=== PATIENT | female | born 1980 | race Caucasian/White ===

== ENCOUNTER 2024-10-12 20:32 | Emergency (ER) | payer SELFPAY ==
[2024-10-12 20:46] VITALS: BP 136/90
[2024-10-12 21:12] LABS: % Basophils 0.2 % (0-2); % Eosinophils 1.3 % (0-6); % Immature Granulocytes 0.3 % (0-0.5); % Lymphocytes 15.3 % (20.5-51.1); % Monocytes 7.7 % (1.7-9.3); % Neutrophils 75.2 % (42.2-75.2); Absolute Eosinophils 0.2 10^3/uL (0-0.7); Absolute Lymphocytes 1.9 10^3/uL (1.2-3.4); Absolute Neutrophils 9.6 10^3/uL (1.4-6.5); Hematocrit 44.1 % (37.0-47.0); Hemoglobin 14.3 g/dL (12.0-16.0); Mean Corp Hgb Conc. 32.4 g/dL (33.0-37.0); Mean Corpuscular Volume 86.3 fL (81.0-99.0); Mean Platelet Volume 9.1 fL (7.4-10.4); Nucleated Red Blood Cells % 0 %; Platelet Count 302 10^3/uL (130-400); Red Blood Cell Count 5.11 10^6/uL (4.20-5.40); Red Cell Dist. Width 12.6 % (11.5-14.5); White Blood Cell Count 12.7 10^3/uL (4.8-10.8)
[2024-10-12 21:26] LABS: ALT (SGPT) 20 U/L (0-35); AST (SGOT) 20 U/L (14-36); Albumin 4.7 g/dl (3.5-5.0); Alkaline Phosphatase 107 U/L (38-126); Blood Urea Nitrogen 10 mg/dl (7-17); Calcium 9.2 mg/dl (8.4-10.2); Carbon Dioxide 24 mmol/L (22-30); Chloride 103 mmol/L (98-107); Glucose 115 mg/dl (70-99); Sodium 136 mmol/L (135-145); Total Bilirubin 0.5 mg/dl (0.2-1.3); Total Protein 7.1 g/dl (6.3-8.2); eGFR > 60.00
[2024-10-12 21:36] LABS: Urine Albumin 4+ (Neg - Trace); Urine Bilirubin Negative (Negative); Urine Character Bloody (Clear); Urine Color Red; Urine Glucose Negative (Negative); Urine Ketone Negative (Negative); Urine Leukocyte Negative (Negative); Urine Nitrite Negative (Negative); Urine Occult Blood 4+ (Negative); Urine Specific Gravity 1.015 (<1.030); Urine Urobilinogen Negative (Neg - 1+)
[2024-10-12 21:52] LABS: Urine Red Blood Cell >100 /HPF (0-2)
[2024-10-12 23:21] VITALS: BP 121/88
[2024-10-12 23:22] VITALS: BMI 25.8
--- NOTE | 2024-10-13 00:11 | ED.GENMED ---
History of Present Illness
General
Chief Complaint: Vaginal Bleeding
Source: patient
Exam Limitations: none
Time Seen by Provider: 10/12/24 23:41
Nursing documentation reviewed up to this point in time: agreed with except (Patient denies vaginal bleeding she complains of burning with urination and blood in urine)
History of Present Illness
History of Present Illness:
Patient is a 44 old female who presents to the ER complaining of burning with urination. She reports starting at 4 PM she had to urinate every 10 minutes and noticed blood in her urine. She denies any vaginal bleeding. She denies any fever chills
nausea vomiting. Denies any back pain. She does have a history of irregular periods
Review of Systems
Review of Systems
Allergies reviewed?: Yes
All Other Systems: ROS reviewed and negative except as documented in HPI and ROS
Constitutional: Reports no symptoms; Denies fever, fatigue or chills
Respiratory: Reports no symptoms
Cardiac: Reports no symptoms
ABD/GI: Reports other (Lower abdominal discomfort with urination)
: Reports dysuria, frequency, urgency and other (Blood in urine); Denies flank pain or discharge
Musculoskeletal: Reports no symptoms; Denies back pain
Skin: Reports no symptoms
Neurological: Reports no symptoms
Psychiatric: Reports no symptoms
Phy Exam
General Physical Exam
General Presentation: no apparent distress
General age: appears stated age
General Skin: warm and dry
General Habitus: normal
General Mental: alert
General Hydration: appears well hydrated
Gastrointestinal Exam
Gastrointestinal Exam: normal bowel sounds, non tender and soft
Neurological Exam
Neurological Exam: alert
Musculoskeletal Exam
Musculoskeletal Exam: full ROM
Skin Exam
Skin Exam: normal color and warm/dry
Psychiatric Exam
Psychiatric Exam: normal mood/affect
Course
Orders/Labs/Results
Orders:
Orders
10/12/24 21:00
Beta HCG Quantitative Urgent
Comment: ADD ON
Complete Blood Count/With Diff Urgent
Comprehensive Metabolic Panel Urgent
HCG, Serum Qualitative Screen Urgent
Comment: ADD ON
Urinalysis Reflex To Culture Urgent
Date Specimen was Collected: 10/12/24
Time Specimen was Collected: 20:52
Urine Microscopic Reflex Cult Urgent
10/12/24 21:08
Urine Culture Urgent
ELIZA Source: U
Specimen Description:
Date Specimen was Collected: 10/12/24
Time Specimen was Collected: 20:52
Comment: ADDED
10/13/24 00:18
Add On- LAB Urgent
Tests Added?: hcg qualitative
10/13/24 00:19
Cefdinir [Omnicef] 300 mg PO NOW STA
Phenazopyridine HCl [Pyridium] 200 mg PO NOW STA
10/13/24 00:26
Add On - Microbiology Urgent
Tests Added?: urine cx
10/13/24 00:53
Add On- LAB Urgent
Tests Added?: quantitative beta HCG
Abnormal Lab Results
10/12/24
21:00
WBC 12.7 H 10^3/uL
(4.8-10.8)
MCHC 32.4 L g/dL
(33.0-37.0)
Absolute Neuts (auto) 9.6 H 10^3/uL
(1.4-6.5)
Absolute Monos (auto) 1.0 H 10^3/uL
(0.1-0.6)
Lymphocytes % 15.3 L %
(20.5-51.1)
Glucose 115 H mg/dl
(70-99)
Ur Occult Blood Reflex 4+ A
(Negative)
Urine RBC >100 A /HPF
(0-2)
Urine Albumin (Reflex) 4+ A
(Neg - Trace)
10/12/24 21:00
10/12/24 21:00
Vital Signs
Initial and Last Documented VS:
Initial Vital Signs
Temp Pulse Resp BP Pulse Ox
98.4 F 86 18 136/90 98
10/12/24 20:46 10/12/24 20:46 10/12/24 20:46 10/12/24 20:46 10/12/24 20:46
Last Documented Vital Signs
Temp Pulse Resp BP Pulse Ox
98.2 F 81 18 118/81 98
10/13/24 00:28 10/13/24 00:28 10/13/24 00:28 10/13/24 00:28 10/13/24 00:28
MDM/Problems Addressed
Differential Diagnosis Includes:
Not limited to UTI, cystitis
MDM/Problems Addressed:
As documented patient is a 44 female who presents with urinary frequency urgency dysuria hematuria since 4 PM. Initial triage note reports vaginal bleeding but patient denies any vaginal bleeding clearly. She reports she sees blood in her urine
and is urinating blood. She denies any fever chills vomiting back pain she is in no acute distress and nontoxic-appearing will treat with Pyridium and cefdinir. She does not have a family doctor will DC with family practice clinic discussed to
return if any worsening of symptoms. White count minimally elevated however no acute distress well-appearing stable for discharge
*Pulse Oximetry
Patient hypoxic: no
*Critical Care Note
Total Time (30-74mins, 75-104mins- exclusive of procedures): Not Applicable
ED Attending Note
-
Portions of this chart may have been created with voice recognition software.� Occasional wrong word or��sound alike� substitutions may have occurred due to the inherent limitations of voice recognition software.
Discharge Plan
Departure
Patient Disposition: Home (Routine Discharge)
Date of Disposition: 10/13/24
Time of Disposition: 00:25
Patient with high blood pressure during this ER visit?: Yes
Condition: Fair
Covid-19: Not Applicable
Discharge Problem:
UTI (urinary tract infection)
Instructions: Urinary tract infections in adults, BLOOD PRESSURE
Prescriptions:
New
cefdinir 300 mg capsule
300 mg PO BID Qty: 14 0RF
phenazopyridine [Pyridium] 200 mg tablet
200 mg PO TID PRN (Reason: Pain) Qty: 6 0RF
Referrals:
[facility] [Provider Group]
[facility] [Outside]
NONE,* [Family Provider] -
Activity Restrictions/Additional Instructions:
As discussed you have a urinary infection. Antibiotic was sent to pharmacy
Start tomorrow, you were given the first dose here in the ER. You may also take Pyridium which was also sent to pharmacy to take every 8 hours as needed for the next 2 days for burning with urination
Be sure to stay well-hydrated. Return if any worsening of symptoms including fever chills vomiting back pain.
Follow-up with family practice clinic in the next several days for reevaluation.
Interventions
Interventions:
*Risk Screen - Suicide Last Done: 10/12/24 23:24
*General Assessment Last Done: 10/12/24 20:49
*Neglect/Abuse Screening Last Done: 10/12/24 23:24
ED- Fall Risk Assessment Last Done: 10/12/24 23:23
*Nursing Disposition Last Done: 10/13/24 01:46
ED-Female Genitourinary Assessment Last Done: 10/12/24 23:23
Discharge Date and Time
Discharge Date/Time: 10/13/24 01:46
Print Language: SLOVENIAN
[2024-10-13 00:28] VITALS: BP 118/81
[2024-10-13] MEDS: OMNICEF PO ×2 (00:44→00:58)
[2024-10-13] MEDS: Pyridium PO ×2 (00:44→00:58)
[2024-10-13] MEDS: OMNICEF 300 MG PO (01:20)
[2024-10-13] MEDS: Pyridium 200 MG PO (01:20)
[2024-10-13 02:30] LABS: Beta HCG Quantitative < 2.39 mIU/ml
--- NOTE | 2024-10-13 02:44 | DOWNTIME ---
There was a [employer] Downtime on 10/13/2024 from 0100 to 10/13/2023 at 0235 . Downtime documentation of patient's care, including medication administrations, has been reconciled in the electronic record per guidelines. Refer to the
patient's paper chart under the miscellaneous tab to see printed paper medication records and downtime forms.
== END 2024-10-13 01:46 | disposition home or self-care (01) ==
LOC: EMR 20:32
PROVIDERS: EMERGENCY PHYSICIAN Student in an Organized Health Care Education/Training Program
DX: N39.0 Urinary tract infection, site not specified (principal); R03.0 Elevated blood-pressure reading, without diagnosis of hypertension; N92.6 Irregular menstruation, unspecified
CPT/HCPCS: 99283; 80053; 81003; 81015; 84702; 84703; 85025; 87077; 87086